=== PATIENT | female | born 1990 ===

== ENCOUNTER 2017-11-24 13:00 | Emergency (ER) | payer OTHER ==
[2017-11-24 13:10] VITALS: BP 149/82; PULSE 85; RESP 16; TEMP 97.1; O2SAT 100
--- NOTE | 2017-11-24 14:15 | ED PDOC ---
Lower Extremity Pain/Injury Time Seen by Provider: 11/24/17 13:11 Chief Complaint (Nursing): Lower Extremity Problem/Injury Chief Complaint (Provider): Right knee pain History Per: Patient History/Exam Limitations: no limitations Onset/Duration Of Symptoms: Days (x1) Current Symptoms Are (Timing): Still Present Additional Complaint(s): Dolores Hobson is a 27 year old female, with no significant past medical history, who presents to the emergency department complaining of a sharp right knee pain onset since yesterday. Patient works at [employer] doing [employer] and states yesterday while at work she slipped between the van and the sidewalk, twisting her right knee. Patient reports hearing cracks with bending of knee. She used Icy/Hot cream last night but hasn't taken anything for the pain. She denies any other injuries or medical complaints. PMD: Shameka Butler - Knee Description Of Injury: Twisted Past Medical History Reviewed: Historical Data, Nursing Documentation, Vital Signs Vital Signs: Last Vital Signs Temp 97.1 F L 11/24/17 13:07 Pulse 85 11/24/17 13:07 Resp 16 11/24/17 13:07 BP 149/82 11/24/17 13:07 Pulse Ox 100 11/24/17 13:07 - Medical History PMH: No Chronic Diseases - Surgical History Surgical History: No Surg Hx - Family History Family History: States: No Known Family Hx - Allergies Allergies/Adverse Reactions: Allergies Allergy/AdvReac Type Severity Reaction Status Date / Time No Known Allergies Allergy Verified 11/24/17 13:10 Review of Systems ROS Statement: Except As Marked, All Systems Reviewed And Found Negative Musculoskeletal: Positive for: Leg Pain (right knee pain) Physical Exam - Reviewed Nursing Documentation Reviewed: Yes Vital Signs Reviewed: Yes - Physical Exam Appears: Positive for: Non-toxic Head Exam: Positive for: ATRAUMATIC, NORMOCEPHALIC Skin: Positive for: Normal Color, Warm, Dry Eye Exam: Positive for: Normal appearance Neck: Positive for: Painless ROM Respiratory: Negative for: Respiratory Distress Extremity: Negative for: Normal ROM (unable to fully extend or flex right knee.) , Deformity, Swelling (Right knee no bruising or edema) Neurologic/Psych: Positive for: Alert, Oriented. Negative for: Motor/Sensory Deficits - ECG O2 Sat by Pulse Oximetry: 100 (RA) Pulse Ox Interpretation: Normal Medical Decision Making Medical Decision Making: Time: 13:11 Initial Impression: Knee injury Initial Plan: --Urine --Knee 3 views RT [RAD] --Motrin tab 600 mg PO XR - No acute fracture or dislocation Scribe Attestation: Documented by Ramon Neville, acting as a scribe for Violet Campos PA-C Provider Scribe Attestation: All medical record entries made by the Scribe were at my direction and personally dictated by me. I have reviewed the chart and agree that the record accurately reflects my personal performance of the history, physical exam, medical decision making, and the department course for this patient. I have also personally directed, reviewed, and agree with the discharge instructions and disposition. Disposition - Clinical Impression Clinical Impression: Knee injury - Patient ED Disposition Is Patient to be Admitted: No Counseled Patient/Family Regarding: Diagnosis, Need For Followup, Rx Given - Disposition Referrals: Renard Anderson III, MD [Staff Provider] - Disposition: Routine/Home Disposition Time: 14:54 Condition: STABLE Additional Instructions: Please follow-up orthopedics. Instructions: Meniscal Tear, Knee Pain (DC) Forms: [employer] (Hebrew), [facility] ED School/Work Excuse
--- NOTE | 2017-11-24 14:50 | RAD ---
PROCEDURE: Right Knee Radiographs. HISTORY: twisted right knee COMPARISON: None. FINDINGS: BONES: No acute fracture. JOINTS: Unremarkable. JOINT EFFUSION: None. OTHER FINDINGS: None. IMPRESSION: No demonstrated fracture or dislocation.
== END 2017-11-24 15:17 | disposition home or self-care (01) ==
LOC: H.ER 13:00
DX: S89.91XA Unspecified injury of right lower leg, initial encounter (principal); X50.9XXA Other and unspecified overexertion or strenuous movements or postures, initial encounter; Y99.0 Civilian activity done for income or pay